=== PATIENT | female | born 1990 | race Two or more races ===

== ENCOUNTER 2020-10-14 13:13 | Emergency (ER) | payer MEDICAID, OTHER ==
[~2020-10-14] VITALS: Ht 160 cm; Wt 63.5 kg
[2020-10-14 14:15] LABS: Urine Bacteria FEW /hpf (None Seen); Urine Blood 2+ /uL (Negative); Urine Specific Gravity 1.004 (1.001-1.035); Urine WBC 6 /hpf (0 - 5)
[2020-10-14 15:04] LABS: Basophils # (auto) 0.1 10 ^3/uL (0-0.2); Basophils % (auto) 0.9 % (0.0-2.0); Eosinophils # (auto) 0.2 10 ^3/uL (0-0.8); Eosinophils % (auto) 1.9 % (0.0-7.0); Hematocrit 48.8 % (36.0-46.0); Hemoglobin 16.7 g/dL (12.2-16.2); Lymphocytes % (auto) 17.5 % (10.0-50.0); Mean Corpuscular Hemoglobin 31.8 pg (28.0-32.0); Mean Corpuscular Hgb Conc. 34.2 g/dL (32.0-36.0); Monocytes # (auto) 0.6 10 ^3/uL (0-1.3); Monocytes % (auto) 5.3 % (0.0-12.0); Neutrophils # (auto) 8.5 10 ^3/uL (1.6-8.6); Neutrophils % (auto) 74.4 % (37.0-80.0); Nucleated Red Blood Cells % 0.1 %; Red Blood Cells 5.24 10^6/uL (4.0-5.20); Red Cell Distribution Width 13.6 % (11.8-14.3); White Blood Cell 11.4 10^3/uL (4.4-10.8)
[2020-10-14 15:21] LABS: Calcium 9.2 mg/dL (8.5-10.1)
[2020-10-14 15:25] LABS: BUN/Creatinine Ratio 6.9; Bilirubin, Total 0.3 mg/dL (0.2-1.0); Total Protein 8.2 g/dL (6.4-8.2)
[2020-10-14] MEDS ORDERED: KETOROLAC TROMETH 30 MG/ML 1ML VIAL IV ONE (15:45)
[2020-10-14] MEDS ORDERED: SODIUM CHLORIDE 0.9% 1,000 ML IVB ONE (15:45)
[2020-10-14 20:23] VITALS: BP 138/99
== END 2020-10-14 20:46 | disposition home or self-care (01) ==
LOC: ER 13:13
DX: N39.0 Urinary tract infection, site not specified (principal); N13.2 Hydronephrosis with renal and ureteral calculous obstruction; F17.210 Nicotine dependence, cigarettes, uncomplicated
CPT/HCPCS: 36415; 74176; 80053; 81001; 84702; 85025; 96361; 96374; 99284; J1885; J7030